=== PATIENT | male | born 2000 | race Hispanic/Latino ===

== ENCOUNTER 2022-05-10 12:33 | Emergency (ER) | payer OTHER ==
[~2022-05-10] VITALS: Ht 177.8 cm; Wt 81.6 kg
[2022-05-10] MEDS ORDERED: LIDOCAINE 1% W/EPINEPHRINE 20 ML VIAL INJ ONE (13:15)
[2022-05-10] MEDS ORDERED: TETANUS/DIPHTHERIA TOX ADULT 0.5 ML SYR IM ONE (13:15)
[2022-05-10] MEDS ORDERED: TETANUS/DIPHTHERIA TOX ADULT 0.5 ML SYR ONE (13:21)
[2022-05-10] MEDS ORDERED: CLINDAMYCIN HC150 MG PO (13:24)
[2022-05-10] MEDS ORDERED: LIDOCAINE 1% W/EPINEPHRINE 20 ML VIAL ONE (13:27)
[2022-05-10 13:48] VITALS: BP 109/76
== END 2022-05-10 13:33 | disposition home or self-care (01) ==
LOC: FSED 13:06
DX: S01.01XA Laceration without foreign body of scalp, initial encounter (principal); W26.0XXA Contact with knife, initial encounter; Y92.89 Other specified places as the place of occurrence of the external cause
CPT/HCPCS: 90471; 90714; 96372; 99283

== ENCOUNTER 2022-05-20 09:41 | Emergency (ER) | payer OTHER ==
[~2022-05-20] VITALS: Ht 177.8 cm; Wt 81.6 kg
[~2022-05-20 09:41] MED LIST: CLINDAMYCIN HC150 MG PO
== END 2022-05-20 09:55 | disposition home or self-care (01) ==
LOC: FSED 09:46
DX: Z48.02 Encounter for removal of sutures (principal)
CPT/HCPCS: 99282